=== PATIENT | female | born 1970 | race Two or more races ===

== ENCOUNTER 2022-12-23 12:57 | Inpatient (IN) | payer OTHER ==
[~2022-12-23] VITALS: Ht 162.6 cm; Wt 93.4 kg
[2022-12-24] MEDS ORDERED: AVAPRO300 MG PO (15:46)
[2022-12-24] MEDS ORDERED: INDERAL LA160 MG PO (15:46)
[2022-12-24] MEDS ORDERED: SYNTHROID75 MCG PO (15:46)
[2022-12-24] MEDS ORDERED: NIFEDIPINE ER60 MG PO (15:46)
[2022-12-29] MEDS ORDERED: VITAMIN D31250 MCG (13:46)
[2022-12-29] MEDS ORDERED: MEGESTROL ACETA20 MG (13:46)
[2022-12-29] MEDS ORDERED: FOLIC ACID1 MG (13:46)
[2022-12-29] MEDS ORDERED: PROGESTERONE200 MG (13:46)
[2022-12-29] MEDS ORDERED: FERROUS SULFAT325 MG (13:46)
[2022-12-29] MEDS ORDERED: IRBESARTAN-HCT1 EAC1 (13:47)
[2022-12-29] MEDS ORDERED: B-121000 MC1 (13:47)
[2022-12-29] MEDS ORDERED: VITAMIN B-121000 MCG (13:47)
[2022-12-31] MEDS ORDERED: GABAPENTIN300 MG PO (07:47)
[2022-12-31] MEDS ORDERED: IBUPROFEN800 MG PO (07:47)
== END 2022-12-31 08:56 | disposition home or self-care (01) | DRG 743 ==
LOC: O/R 12-29 07:22 → OB/GYN 12-29 12:15
PROVIDERS: Internal Medicine Geriatric Medicine; ADMIT Obstetrics & Gynecology Gynecology; ATTEND Obstetrics & Gynecology Gynecology
PROC: 0UT74ZZ Resection of Bilateral Fallopian Tubes, Percutaneous Endoscopic Approach (ICD-10-PCS; 2022-12-29)
PROC: 0UT94ZZ Resection of Uterus, Percutaneous Endoscopic Approach (ICD-10-PCS; principal; 2022-12-29 15:45)
DX: D25.1 Intramural leiomyoma of uterus (principal); D25.2 Subserosal leiomyoma of uterus; N80.03 Adenomyosis of the uterus; N72 Inflammatory disease of cervix uteri; N88.8 Other specified noninflammatory disorders of cervix uteri; I10 Essential (primary) hypertension; E03.9 Hypothyroidism, unspecified; E66.9 Obesity, unspecified

== ENCOUNTER 2024-10-10 08:07 | Outpatient (CLI) | payer OTHER ==
[~2024-10-10 08:07] MED LIST: AVAPRO300 MG PO; B-121000 MC1; FERROUS SULFAT325 MG; FOLIC ACID1 MG; GABAPENTIN300 MG PO; IBUPROFEN800 MG PO; INDERAL LA160 MG PO; IRBESARTAN-HCT1 EAC1; MEGESTROL ACETA20 MG; NIFEDIPINE ER60 MG PO; PROGESTERONE200 MG; SYNTHROID75 MCG PO; VITAMIN B-121000 MCG; VITAMIN D31250 MCG
== END 2024-10-10 08:09 | disposition home or self-care (01) ==
LOC: SONOGRAMA 08:07
PROVIDERS: ATTEND Pathology Anatomic Pathology
DX: D34 Benign neoplasm of thyroid gland (principal); E07.89 Other specified disorders of thyroid; E07.9 Disorder of thyroid, unspecified